=== PATIENT | female | born 2000 ===

== ENCOUNTER 2019-07-22 22:34 | Emergency (ER) | payer OTHER ==
--- NOTE | 2019-07-22 23:18 | ER ---
Nurse's Notes [facility] Name: Yesica Foster Age: 19 yrs Sex: Female : 2000 Arrival Date: 07/22/2019 Time: 22:38 Bed 7 Private MD: Diagnosis: Acute upper respiratory infection, unspecified;Fever, unspecified Presentation: 07/22 22:48 Presenting complaint: Patient states: cough, congestion, and body aches x 2 days. Also aa1 reports she broke one of her fingernails at work today. Transition of care: patient was not received from another setting of care. Onset of symptoms was July 20, 2019. Risk Assessment: Do you want to hurt yourself or someone else? Patient reports no desire to harm self or others. Initial Sepsis Screen: Does the patient meet any 2 criteria? No. Patient's initial sepsis screen is negative. Does the patient have a suspected source of infection? No. Patient's initial sepsis screen is negative. Care prior to arrival: None. 22:48 Method Of Arrival: Ambulatory aa1 22:48 Acuity: HARYR 4 aa1 Triage Assessment: 22:52 General: Appears in no apparent distress. comfortable, Behavior is calm, cooperative, aa1 appropriate for age. 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 - Social history:: Smoking status: Patient/guardian denies using tobacco. - Ebola Screening: : Patient denies exposure to infectious person Patient denies travel to an Ebola-affected area in the 21 days before illness onset. - Family history:: not pertinent. Screenin:54 Abuse screen: Denies threats or abuse. Denies injuries from another. Nutritional lp1 screening: No deficits noted. Tuberculosis screening: No symptoms or risk factors identified. Fall Risk None identified. Assessment: 23:00 General: Appears in no apparent distress. Behavior is appropriate for age. Pain: lp1 Complains of pain in right little fingernail Pain currently is 7 out of 10 on a pain scale. Neuro: Level of Consciousness is awake, alert, obeys commands. Cardiovascular: Patient's skin is warm and dry. Respiratory: Reports cough that is Respiratory effort is even, unlabored. GI: Reports vomiting. : No signs and/or symptoms were reported regarding the genitourinary system. EENT: Reports nasal congestion nasal discharge. Derm: Skin is intact, Skin is dry, Skin is normal, right little fingernail, blood noted, no active bleeding; acrylic acrylic nail in place. Musculoskeletal: No deficits noted. Vital Signs: 22:52 BP 136 / 76; Pulse 91; Resp 18; Temp 98.5; Pulse Ox 100% on R/A; Weight 98.43 kg; aa1 Height 5 ft. 6 in. (167.64 cm); Pain 7/10; 22:52 Body Mass Index 35.02 (98.43 kg, 167.64 cm) aa1 ED Course: 22:38 Patient arrived in ED. [id number] 22:44 Arley Hitchcock MD is Attending Physician. [facility] 22:51 Triage completed. aa1 22:52 Arm band placed on right wrist. aa1 22:53 Constance Martins, JR is Primary Nurse. lp1 22:54 Patient has correct armband on for positive identification. lp1 23:04 Flu and/or RSV swab sent to lab. lp1 23:30 No provider procedures requiring assistance completed. Patient did not have IV access lp1 during this emergency room visit. Administered Medications: 23:30 Drug: Zithromax 500 mg Route: PO; lp1 23:52 Follow up: Response: No adverse reaction lp1 23:30 Drug: Tamiflu 75 mg Route: PO; lp1 23:52 Follow up: Response: No adverse reaction lp1 23:30 Drug: Tylenol 650 mg Route: PO; lp1 23:52 Follow up: Response: No adverse reaction lp1 Outcome: 23:18 Discharge ordered by . [facility] 23:52 Discharged to home ambulatory, with significant other. lp1 23:52 Condition: good 23:52 Discharge instructions given to patient, Instructed on discharge instructions, follow up and referral plans. medication usage, Demonstrated understanding of instructions, follow-up care, medications, Prescriptions given X 3. 23:57 Patient left the ED. lp1 Signatures: Ayana Joseph RN RN aa Arley Hitchcock MD MD cha Pena Constance, JR RN lp1 Sharron Allison [id number]
--- NOTE | 2019-07-22 23:19 | EDPHYS ---
Physician Documentation [facility] Name: Yesica Foster Age: 19 yrs Sex: Female : 2000 Arrival Date: 07/22/2019 Time: 22:38 Bed 7 Private MD: ED Physician Arley Hitchcock HPI: 07/22 23:14 This 19 yrs old Black Female presents to ER via Ambulatory with complaints of Flu aracelis Symptoms. 23:14 The patient has shortness of breath with light activity. Onset: The symptoms/episode aracelis began/occurred 2 day(s) ago. Duration: The symptoms are continuous, and are unchanged since they started. The patient's shortness of breath is aggravated by coughing, is alleviated by nothing. The patient or guardian reports cough, that is intermittent, difficulty breathing, flu symptoms, arthralgias, low-grade fever, myalgias, no appetite. Modifying factors: The symptoms are alleviated by nothing. the symptoms are aggravated by activity. fever , cough, uri. Associated signs and symptoms: Pertinent positives: non-productive cough, fever. Severity of symptoms: At their worst the symptoms were mild moderate in the emergency department the symptoms are unchanged. 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 - Social history:: Smoking status: Patient/guardian denies using tobacco. - Ebola Screening: : Patient denies exposure to infectious person Patient denies travel to an Ebola-affected area in the 21 days before illness onset. - Family history:: not pertinent. ROS: 23:14 Constitutional: Negative for fever, chills, and weight loss, Eyes: Negative for injury, aracelis pain, redness, and discharge, ENT: Negative for injury, pain, and discharge, Neck: Negative for injury, pain, and swelling, Cardiovascular: Negative for chest pain, palpitations, and edema, Abdomen/GI: Negative for abdominal pain, nausea, vomiting, diarrhea, and constipation, Back: Negative for injury and pain, : Negative for injury, bleeding, discharge, and swelling, MS/Extremity: Negative for injury and deformity, Skin: Negative for injury, rash, and discoloration, Neuro: Negative for headache, weakness, numbness, tingling, and seizure, Psych: Negative for depression, anxiety, suicide ideation, homicidal ideation, and hallucinations, Allergy/Immunology: Negative for hives, rash, and allergies, Endocrine: Negative for neck swelling, polydipsia, polyuria, polyphagia, and marked weight changes, Hematologic/Lymphatic: Negative for swollen nodes, abnormal bleeding, and unusual bruising. 23:14 Respiratory: Positive for cough, "sounds productive". Exam: 23:14 Constitutional: This is a well developed, well nourished patient who is awake, alert, aracelis and in no acute distress. Head/Face: Normocephalic, atraumatic. Eyes: Pupils equal round and reactive to light, extra-ocular motions intact. Lids and lashes normal. Conjunctiva and sclera are non-icteric and not injected. Cornea within normal limits. Periorbital areas with no swelling, redness, or edema. ENT: Nares patent. No nasal discharge, no septal abnormalities noted. Tympanic membranes are normal and external auditory canals are clear. Oropharynx with no redness, swelling, or masses, exudates, or evidence of obstruction, uvula midline. Mucous membranes moist. Neck: Trachea midline, no thyromegaly or masses palpated, and no cervical lymphadenopathy. Supple, full range of motion without nuchal rigidity, or vertebral point tenderness. No Meningismus. Chest/axilla: Normal chest wall appearance and motion. Nontender with no deformity. No lesions are appreciated. Cardiovascular: Regular rate and rhythm with a normal S1 and S2. No gallops, murmurs, or rubs. Normal PMI, no JVD. No pulse deficits. Respiratory: Lungs have equal breath sounds bilaterally, clear to auscultation and percussion. No rales, rhonchi or wheezes noted. No increased work of breathing, no retractions or nasal flaring. Abdomen/GI: Soft, non-tender, with normal bowel sounds. No distension or tympany. No guarding or rebound. No evidence of tenderness throughout. Back: No spinal tenderness. No costovertebral tenderness. Full range of motion. Skin: Warm, dry with normal turgor. Normal color with no rashes, no lesions, and no evidence of cellulitis. MS/ Extremity: Pulses equal, no cyanosis. Neurovascular intact. Full, normal range of motion. Neuro: Awake and alert, GCS 15, oriented to person, place, time, and situation. Cranial nerves II-XII grossly intact. Motor strength 5/5 in all extremities. Sensory grossly intact. Cerebellar exam normal. Normal gait. Psych: Awake, alert, with orientation to person, place and time. Behavior, mood, and affect are within normal limits. 23:14 Musculoskeletal/extremity: ROM: full active range of motion, full passive range of motion, Circulation is intact in all extremities. Sensation intact. Compartment Syndrome exam of affected extremity: is normal. Joints: All joints appear normal with full range of motion. Vital Signs: 22:52 BP 136 / 76; Pulse 91; Resp 18; Temp 98.5; Pulse Ox 100% on R/A; Weight 98.43 kg; aa1 Height 5 ft. 6 in. (167.64 cm); Pain 7/10; 22:52 Body Mass Index 35.02 (98.43 kg, 167.64 cm) aa1 MDM: 22:44 Patient medically screened. [facility] 23:17 Data reviewed: vital signs, nurses notes, lab test result(s). [facility] 07/22 22:46 Order name: Flu [facility] 07/22 23:14 Order name: PO challenge; Complete Time: 23:27 [facility] Administered Medications: 23:30 Drug: Zithromax 500 mg Route: PO; lp1 23:52 Follow up: Response: No adverse reaction 1 23:30 Drug: Tamiflu 75 mg Route: PO; lp1 23:52 Follow up: Response: No adverse reaction 1 23:30 Drug: Tylenol 650 mg Route: PO; lp1 23:52 Follow up: Response: No adverse reaction lp1 Disposition: 07/22/19 23:18 Discharged to Home. Impression: Acute upper respiratory infection, unspecified, Fever, unspecified. - Condition is Stable. - Discharge Instructions: Upper Respiratory Infection, Adult, Cool Mist Vaporizer, Upper Respiratory Infection, Adult, [id number], Cough, Adult. - Prescriptions for Bromfed DM 2- 30-10 mg/5 mL Oral syrup - take 10 milliliter by ORAL route every 6 hours; 160 milliliter. Zithromax Z- Edward 250 mg Oral Tablet - take 1 tablet by ORAL route as directed for 5 days Day 1 - take two (2) tablets one time. Day 2, 3, 4 , 5 take one (1) tablet once daily.; 6 tablet. Tamiflu 75 mg Oral Capsule - take 1 tablet by ORAL route every 12 hours for 5 days; 10 tablet. - Medication Reconciliation Form, Thank You Letter, Antibiotic Education, Prescription Opioid Use, Work release form form. - Follow up: Private Physician; When: 2 - 3 days; Reason: Recheck today's complaints, Continuance of care, Re-evaluation by your physician. - Problem is new. - Symptoms have improved. Signatures: Dispatcher [employer] EDMS Ayana Joseph RN RN aa1 Arley Hitchcock MD MD cha Pena, Laura RN RN lp1 Corrections: (The following items were deleted from the chart) 23:57 23:18 07/22/2019 23:18 Discharged to Home. Impression: Acute upper respiratory lp1 infection, unspecified; Fever, unspecified. Condition is Stable. Forms are Medication Reconciliation Form, Thank You Letter, Antibiotic Education, Prescription Opioid Use. Follow up: Private Physician; When: 2 - 3 days; Reason: Recheck today's complaints, Continuance of care, Re-evaluation by your physician. Problem is new. Symptoms have improved. aracelis
[2019-07-22] MEDS ORDERED: OSELTAMIVIR 75 MG CAP ONE (23:23)
[2019-07-22] MEDS ORDERED: AZITHROMYCIN 250 MG TAB ONE (23:23)
[2019-07-22] MEDS ORDERED: ACETAMINOPHEN 325 MG TABLET ONE (23:24)
[2019-07-23 02:23] VITALS: BP 136/76; TEMP 98.5; O2SAT 100
== END 2019-07-22 23:57 | disposition home or self-care (01) ==
LOC: ER 22:34
DX: J06.9 Acute upper respiratory infection, unspecified (principal); R50.9 Fever, unspecified; Z88.0 Allergy status to penicillin
CPT/HCPCS: 87804; 99283